=== PATIENT | female | born 1995 | race African-American/Black ===

== ENCOUNTER 2019-08-10 21:56 | Emergency (ER) | payer SELFPAY ==
--- NOTE | 2019-08-10 23:33 | ED ---
Respiratory - History of Current Complaint Chief Complaint: EDPsychosocial Stated Complaint: 941 PER EMS Time Seen by Provider: 08/10/19 22:13 Pain Intensity: 0 - Allergy/Home Medications Allergies/Adverse Reactions: Allergies Allergy/AdvReac Type Severity Reaction Status Date / Time metoclopramide [From Reglan] Allergy Hives Verified 08/10/19 22:06 zolpidem [From Ambien] Allergy Altered Verified 08/10/19 22:06 Mental Status PMH/Surg Hx/FS Hx/Imm Hx Infectious Disease History: No Infectious Disease History: Denies: Traveled Outside the [place] in Last 30 Days - Social History Alcohol Use: None Substance Use Type: Reports: None Smoking Status (MU): Never Smoked Tobacco Physical Exam Vital Signs On Initial Exam: Initial Vitals Temp Pulse Resp BP Pulse Ox 98.9 F 77 18 140/86 99 08/10/19 22:02 08/10/19 22:02 08/10/19 22:02 08/10/19 22:02 08/10/19 22:02 Diagnostics - Vital Signs Vital Signs Temp Pulse Resp BP Pulse Ox 08/10/19 22:02 98.9 F 77 18 140/86 99 - Laboratory Lab Statement: Any lab studies that have been ordered have been reviewed, and results considered in the medical decision making process. Discharge ED - Discharge Plan Condition: Stable - Billing Disposition and Condition Condition: STABLE
[2019-08-11 01:56] LABS: ABS Basophils 0.1 10^3/ul (0-0.2); ABS Lymphocytes 2.5 10^3/ul (1.0-4.8); ABS Neutrophils 7.6 10^3/ul (1.5-7.7); Eosinophil % 0.1 %; Hematocrit 41 % (35-47); Lymphocyte % 22.7 %; Mean Corpuscular HGB Conc 34 g/dL (31-36); Mean Corpuscular Hemoglobin 32 pg (27-31); Mean Corpuscular Volume 92 fL (80-97); Mean Platelet Volume 7.9 fL (7.4-10.4); Nucleated Red Blood Cells % 0.1; Platelet Count 284 10^3/uL (150-450); Red Blood Count 4.43 10^6 /uL (3.70-4.87); Red Cell Distribution Width 14 % (10-15); White Blood Count 11.2 10^3/uL (3.5-10.8)
--- NOTE | 2019-08-11 02:00 | ED ---
Progress - Progress Note Progress Note: Receiving patient from MAYUR Abernathy 0230 08/11/19 pending [facility] transfer. Patient stable throughout. Patient will be signed out to Dr. Ty at 0700 08/11/19 pending [facility] transfer. - Additional EKG/XRAY/Consults EKG #2: NSR - 70 BPM Comments: At 0153: No STEMI. ED Physician has reviewed and interpreted this EKG. Course/Dx - Course Course Of Treatment: Receiving patient from MAYUR Abernathy 0230 08/11/19 pending [facility] transfer. Patient stable throughout. Patient will be signed out to Dr. Ty at 0700 08/11/19 pending [facility] transfer. - Diagnoses Provider Diagnoses: Psychotic disorder Discharge ED - Sign-Out/Discharge Documenting (check all that apply): Sign-Out Patient, Receiving Sign-Out Signing out patient TO: Constantin Ty Receiving patient FROM: Manuel Abernathy - Discharge Plan Condition: Stable Disposition: PSYCHIATRIC FACILITY-OTHER Referrals: No Primary Care Phys,NOPCP [Primary Care Provider] - - Billing Disposition and Condition Condition: STABLE Disposition: Psychiatric Facility Other - Attestation Statements Document Initiated by Scribe: Yes Documenting Scribe: Jaya Bailey Provider For Whom Dominicibcarol is Documenting (Include Credential): Marlene Tyler MD Scribe Attestation: Jaya Cunningham scribed for Marlene Tyler MD on 08/11/19 at 0525. Scribe Documentation Reviewed: Yes Provider Attestation: The documentation as recorded by the Jaya pinzon accurately reflects the service I personally performed and the decisions made by me, Marlene Tyler MD Status of Scribe Document: Viewed
[2019-08-11 02:14] LABS: ALT 13 U/L (7-52); AST 20 U/L (13-39); Albumin 4.8 g/dL (3.2-5.2); Albumin/Globulin Ratio 1.7 (1-3); Alkaline Phosphatase 51 U/L (34-104); Anion Gap 10 mmol/L (2-11); BUN/Creatinine Ratio 12.8 (8-20); Blood Urea Nitrogen 14 mg/dL (6-24); CO2 Carbon Dioxide 23 mmol/L (22-32); Calcium 9.5 mg/dL (8.6-10.3); Chloride 103 mmol/L (101-111); EGFR African American 76.7 (>60); EGFR Non-African American 63.4 (>60); Globulin 2.9 g/dL (2-4); Glucose 93 mg/dL (70-100); Potassium 3.6 mmol/L (3.5-5.0); Sodium 136 mmol/L (135-145); Total Protein 7.7 g/dL (6.4-8.9)
[2019-08-11 02:20] LABS: Acetaminophen < 15 mcg/mL; Alcohol < 10 mg/dL (<10); HCG Pregnancy < 0.60 mIU/mL; Salicylate < 2.50 mg/dL (<30)
[2019-08-11 02:36] LABS: TSH (Thyroid Stimulating Horm) 1.59 mcIU/mL (0.34-5.60)
--- NOTE | 2019-08-11 02:50 | ED ---
Medical Screening - HPI Summary HPI Summary: Patient presents 941 by [facility] for bizarre statements on twitter. Denies SI , HI. Denies any symptoms, pain or injury. Patient appears slightly manic with some pressured speech, however coherent, calm and cooperative. Denies medical history, though states she was once diagnosed with bipolar disorder, not currently taking medication. States she was told she did not have to take meds for bipolar disorder by primary care. Denies EtOH or recreational drug use. - History of Current Complaint Chief Complaint: EDPsychosocial Stated Complaint: 941 PER EMS Time Seen by Provider: 08/10/19 22:13 Severity: moderate PMH/Surg Hx/FS Hx/Imm Hx Endocrine/Hematology History: Denies: Hx Anticoagulant Therapy Cardiovascular History: Denies: Hx Pacemaker/ICD GI History: Denies: Hx Cirrhosis History: Denies: Hx Dialysis Sensory History: Denies: Hx Eye Injury Opthamlomology History: Denies: Hx Eye Prosthesis EENT History: Denies: Hx Deafness Neurological History: Denies: Hx Dementia Psychiatric History: Reports: Hx Depression - Childhood, Hx Bipolar Disorder - Childhood Denies: Hx Suicide Attempt Infectious Disease History: No Infectious Disease History: Denies: Traveled Outside the [place] in Last 30 Days - Family History Known Family History: Positive: Non-Contributory - Social History Alcohol Use: None Alcohol Amount: one 40oz malt beverage recently, hx of heavier drinking Substance Use Type: Reports: None Substance Use Comment - Amount & Last Used: some marijuana use Smoking Status (MU): Never Smoked Tobacco Review of Systems Constitutional: Negative Eyes: Negative ENT: Negative Cardiovascular: Negative Respiratory: Negative Gastrointestinal: Negative Genitourinary: Negative Musculoskeletal: Negative Skin: Negative Neurological: Negative Psychological: Normal All Other Systems Reviewed And Are Negative: Yes Physical Exam - Summary Physical Exam Summary: Patient appears manic with pressurized speech. There are calm and cooperative and essentially coherent. Triage Information Reviewed: Yes Vital Signs On Initial Exam: Initial Vitals Temp Pulse Resp BP Pulse Ox 98.9 F 77 18 140/86 99 08/10/19 22:02 08/10/19 22:02 08/10/19 22:02 08/10/19 22:02 08/10/19 22:02 Vital Signs Reviewed: Yes Appearance: Positive: Well-Appearing Skin: Positive: Warm Head/Face: Positive: Normal Head/Face Inspection Eyes: Positive: Normal Neck: Positive: Supple Respiratory/Lung Sounds: Positive: Clear to Auscultation Cardiovascular: Positive: Normal Abdomen Description: Positive: Nontender Musculoskeletal: Positive: Normal Neurological: Positive: Normal Psychiatric: Positive: Normal AVPU Assessment: Alert - Jessica Coma Scale Best Eye Response: 4 - Spontaneous Best Motor Response: 6 - Obeys Commands Best Verbal Response: 5 - Oriented Coma Scale Total: 15 Procedures - Sedation Patient Received Moderate/Deep Sedation with Procedure: No Diagnostics - Vital Signs Vital Signs Temp Pulse Resp BP Pulse Ox 08/10/19 22:02 98.9 F 77 18 140/86 99 - Laboratory Lab Results: Lab Results 08/11/19 08/11/19 Range/Units 01:44 01:44 WBC 11.2 H (3.5-10.8) 10^3/uL RBC 4.43 (3.70-4.87) 10^6 /uL Hgb 14.0 (12.0-16.0) g/dL Hct 41 (35-47) % MCV 92 (80-97) fL MCH 32 H (27-31) pg MCHC 34 (31-36) g/dL RDW 14 (10-15) % Plt Count 284 (150-450) 10^3/uL MPV 7.9 (7.4-10.4) fL Neut % (Auto) 67.9 % Lymph % (Auto) 22.7 % Page % (Auto) 8.7 % Eos % (Auto) 0.1 % Baso % (Auto) 0.6 % Absolute Neuts (auto) 7.6 (1.5-7.7) 10^3/ul Absolute Lymphs (auto) 2.5 (1.0-4.8) 10^3/ul Absolute Monos (auto) 1.0 H (0-0.8) 10^3/ul Absolute Eos (auto) 0.0 (0-0.6) 10^3/ul Absolute Basos (auto) 0.1 (0-0.2) 10^3/ul Absolute Nucleated RBC 0.0 10^3/ul Nucleated RBC % 0.1 Sodium 136 (135-145) mmol/L Potassium 3.6 (3.5-5.0) mmol/L Chloride 103 (101-111) mmol/L Carbon Dioxide 23 (22-32) mmol/L Anion Gap 10 (2-11) mmol/L BUN 14 (6-24) mg/dL Creatinine 1.09 H (0.51-0.95) mg/dL Est GFR ( Amer) 76.7 (>60) Est GFR (Non-Af Amer) 63.4 (>60) BUN/Creatinine Ratio 12.8 (8-20) Glucose 93 (70-100) mg/dL Calcium 9.5 (8.6-10.3) mg/dL Total Bilirubin 1.80 H (0.2-1.0) mg/dL AST 20 (13-39) U/L ALT 13 (7-52) U/L Alkaline Phosphatase 51 (34-104) U/L Total Protein 7.7 (6.4-8.9) g/dL Albumin 4.8 (3.2-5.2) g/dL Globulin 2.9 (2-4) g/dL Albumin/Globulin Ratio 1.7 (1-3) TSH 1.59 (0.34-5.60) mcIU/mL Beta HCG, Quant < 0.60 mIU/mL Salicylates < 2.50 (<30) mg/dL Acetaminophen < 15 mcg/mL Serum Alcohol < 10 (<10) mg/dL Result Diagrams: 08/11/19 01:44 08/11/19 01:44 Lab Statement: Any lab studies that have been ordered have been reviewed, and results considered in the medical decision making process. Re-Evaluation - Re-Evaluation First Eval Re-Evaluation Time: 07:03 Comment: Pt ambulated to the bathroom. Course/Dx - Course Course Of Treatment: Patient presents 941 by [facility] for bizarre statements on twitter. Denies SI, HI. Denies any symptoms, pain or injury. Patient appears slightly manic with some pressured speech, however coherent, calm and cooperative. Denies medical history, though states she was once diagnosed with bipolar disorder, not currently taking medication. States she was told she did not have to take meds for bipolar disorder by primary care. Denies EtOH or recreational drug use. Vital signs within normal limits. WBC 11.2. Labs otherwise unremarkable. Mental health evaluation recommends involuntary admission per Dr. Torres. No rooms available at [facility]. Patient pending transfer. Signed out to Dr. Tyler. Receiving patient from MAYUR Abernathy 0230 08/11/19 pending [facility]. Patient stable throughout. Patient will be signed out to Dr. Ty at 0700 08/11/19 pending [facility] transfer. - Diagnoses Provider Diagnoses: Psychotic disorder Discharge ED - Sign-Out/Discharge Documenting (check all that apply): Sign-Out Patient Signing out patient TO: Marlene Tyler - Discharge Plan Condition: Stable Disposition: PSYCHIATRIC FACILITY-OTHER Referrals: No Primary Care Phys,NOPCP [Primary Care Provider] - - Billing Disposition and Condition Condition: STABLE Disposition: Psychiatric Facility Other
--- NOTE | 2019-08-11 07:18 | ED ---
Progress - Progress Note Progress Note: This pt is a sign out from Dr. Tyler to Dr. Stanley pending transfer to another psychiatric facility. 0720 - Spoke with Dr. Maradiaga, from the [facility], who accepted the patient for transfer to the ED. The psychiatrist is Dr. Costello. - Additional EKG/XRAY/Consults EKG #2: NSR - 70 BPM Comments: At 0153: No STEMI. ED Physician has reviewed and interpreted this EKG. Re-Evaluation - Re-Evaluation First Eval Re-Evaluation Time: 07:03 Comment: Pt ambulated to the bathroom. Course/Dx - Course Course Of Treatment: Patient was signed out from Dr. Tyler pending transfer to outside psychiatric facility. Patient was accepted at [facility]. - Diagnoses Provider Diagnoses: Psychotic disorder - Provider Notifications Discussed Care Of Patient With: Dr. Maradiaga Time Discussed With Above Provider: 07:20 Instructed by Provider To: Transfer - Dr. Maradiaga accepted patient for transfer to [facility]. Reason For Transfer: No beds available. Discharge ED - Sign-Out/Discharge Documenting (check all that apply): Patient Departure - Transfer, Receiving Sign -Out Receiving patient FROM: Marlene Tyler - Discharge Plan Condition: Stable Disposition: PSYCHIATRIC FACILITY-OTHER Referrals: No Primary Care Phys,NOPCP [Primary Care Provider] - - Billing Disposition and Condition Condition: STABLE Disposition: Psychiatric Facility Other - Attestation Statements Document Initiated by Dominicibe: Yes Documenting Scribe: Aline Colin Provider For Whom Scribe is Documenting (Include Credential): Maurisio Stanley MD Scribe Attestation: Aline Cunningham, scribed for Maurisio Stanley MD on 08/11/19 at 0738. Scribe Documentation Reviewed: Yes Provider Attestation: The documentation as recorded by the Aline pinzon accurately reflects the service I personally performed and the decisions made by , Maurisio Stanley MD Status of Scribe Document: Viewed
[2019-08-11 10:41] VITALS: BP 127/87
== END 2019-08-11 10:52 ==
LOC: ED 21:56
DX: F23 Brief psychotic disorder (principal); F32.9 Major depressive disorder, single episode, unspecified
CPT/HCPCS: 36415; 80053; 80320; 80329; 84443; 84702; 85025; 93005; 99284; G0480